=== PATIENT | female | born 1975 | race Caucasian/White ===

== ENCOUNTER 2019-10-28 12:45 | Inpatient (IN) | payer SELFPAY ==
[~2019-10-28] VITALS: Ht 175.3 cm; Wt 57.2 kg
[2019-10-28] MEDS ORDERED: SODIUM CHLORIDE 0.9% 1000ML BAG (SEPSIS BOLUS) IV ONE (13:30)
[2019-10-28 14:28] LABS: CLARITY URINE TURBID (CLEAR); COLOR URINE DK YELLOW (YELLOW); KETONES URINE 1+ (NEGATIVE); LEUKOCYTE ESTERASE URINE 2+ (NEGATIVE); NITRITE URINE NEGATIVE (NEGATIVE); OCCULT BLOOD URINE 1+ (NEGATIVE); PH URINE 6.5 (4.5-8.0); PROTEIN URINE 3+ (NEGATIVE); SPECIFIC GRAVITY URINE 1.022 (1.005-1.030)
[2019-10-28 15:17] LABS: *AMPHETAMINES SCREEN URINE NEGATIVE (NEGATIVE); *BARBITURATES SCREEN URINE NEGATIVE (NEGATIVE); *BENZODIAZEPINES SCREEN URINE NEGATIVE (NEGATIVE)
[2019-10-28 15:18] LABS: *COCAINE SCREEN URINE NEGATIVE (NEGATIVE); METHADONE URINE SCREEN NEGATIVE (NEGATIVE); OPIATES URINE SCREEN NEGATIVE (NEGATIVE); PHENCYCLIDINE URINE SCREEN NEGATIVE (NEGATIVE)
[2019-10-28 15:19] LABS: CANNABINOID URINE SCREEN NEGATIVE (NEGATIVE)
[2019-10-28 15:23] LABS: HEMATOCRIT. 32.5 % (36.0-48.0); HEMOGLOBIN. 10.5 g/dL (12.0-16.0); MEAN CORPUSCULAR HEMOGLOBIN 25.1 pg (28.0-32.0); MEAN CORPUSCULAR VOLUME 77.4 fL (81.0-99.0); MEAN PLATELET VOLUME 8.8 fl (7.4-10.4); PLATELET 252 x1000/uL (130-400); RED CELL DISTRIBUTION WIDTH 16.7 % (11.6-14.6)
[2019-10-28 15:26] LABS: CHLORIDE 108 mEq/L (98-107)
[2019-10-28 15:39] LABS: B-HCG QUANTITATIVE < 1 mIU/mL (<3)
[2019-10-28 16:09] LABS: ATYPICAL LYMPHOCYTES 1
[2019-10-28 16:10] LABS: PLATELET ESTIMATE NORMAL
[2019-10-28] MEDS ORDERED: ACETAMINOPHEN 325MG TABLET PO ONE (16:15)
[2019-10-28] MEDS ORDERED: ZOLPIDEM TARTRATE 5MG TABLET PO PRN (16:45)
[2019-10-28] MEDS ORDERED: IPRATROPIUM/ALBUTEROL 0.5-3(2.5)MG/3ML NEB NEB PRN (16:45)
[2019-10-28] MEDS ORDERED: GUAIFENESIN 200MG/10ML SUGAR FREE UDC PO PRN (16:45)
[2019-10-28] MEDS ORDERED: LEVOFLOXACIN 500MG PREMIX 100 ML IV SCH ×2 (16:45→17:45)
[2019-10-28] MEDS ORDERED: ONDANSETRON HCL 4MG/2ML INJ IV PRN (16:45)
[2019-10-28] MEDS ORDERED: NITROGLYCERIN 0.4MG TABLET SL SL PRN (16:45)
[2019-10-28] MEDS ORDERED: DOCUSATE SODIUM 100MG CAPSULE PO PRN (16:45)
[2019-10-28] MEDS ORDERED: CLONIDINE 0.1MG TABLET PO PRN (16:45)
[2019-10-28] MEDS ORDERED: MAGNESIUM/ALUMINUM HYDROXIDE/SIMETHICONE 30ML UDC PO PRN (16:45)
[2019-10-28] MEDS ORDERED: POTASSIUM CHLORIDE 20MEQ TABLET SR PO SCH (18:00)
[2019-10-28] MEDS: SODIUM CHLORIDE 0.9% 1,000 ML IV SCH (18:17)
[2019-10-28] MEDS: KETOROLAC 15MG/ML VIAL IV PRN (18:18)
[2019-10-28 18:39] VITALS: BP 131/62
[2019-10-28 18:40] VITALS: BP 131/62
[2019-10-28 18:43] LABS: ETHANOL BLOOD < 10 mg/dL
[2019-10-28] MEDS ORDERED: DEXTROSE 50% WATER 50ML SYRINGE IV PRN (18:45)
[2019-10-28 18:47] LABS: LDL CHOLESTEROL 90 mg/dL (5-100)
[2019-10-28 18:48] LABS: HDL CHOLESTEROL 73 mg/dL (40-59)
[2019-10-28 18:50] LABS: TOTAL IRON BINDING CAPACITY 368 ug/dL (250-450)
[2019-10-28] MEDS ORDERED: METF-415 MT (19:10)
[2019-10-28 19:13] LABS: FOLIC ACID (FOLATE) SERUM >20 ng/mL ng/mL (>5.38)
[2019-10-28 19:24] LABS: VITAMIN B12 SERUM 1043 pg/mL (211-911)
[2019-10-28 20:00] VITALS: BP 122/61
[2019-10-28] MEDS ORDERED: MAGNESIUM 1 G PREMIX 100 ML IV SCH (20:00)
[2019-10-28] MEDS: BLOOD SUGAR DIAGNOSTIC STRIP TEST SCH (21:00)
[2019-10-28] MEDS: LEVOFLOXACIN 500MG PREMIX 100 ML IV SCH (21:30)
[2019-10-28] MEDS: ENOXAPARIN 40MG/0.4ML SYR SUBCUT SCH (21:31)
[2019-10-28] MEDS: FAMOTIDINE 20MG TABLET PO SCH (21:31)
[2019-10-28] MEDS: INSULIN LISPRO 100 UNITS/ML SUBCUT SCH (22:11)
[2019-10-29] VITALS: BP 126/65
[2019-10-29 00:04] LABS: CREATINE KINASE 45 IU/L (26-192)
[2019-10-29 00:05] LABS: CREATINE KINASE MB FRACTION < 1.0 ng/mL (0.5-3.6)
[2019-10-29 04:00] VITALS: BP 115/59
[2019-10-29] MEDS: SODIUM CHLORIDE 0.9% 1,000 ML IV SCH ×2 (04:00→18:36)
[2019-10-29] MEDS: KETOROLAC 15MG/ML VIAL IV PRN ×3 (04:38→18:51)
[2019-10-29] MEDS: BLOOD SUGAR DIAGNOSTIC STRIP TEST SCH ×4 (05:39→21:38)
[2019-10-29 06:27] LABS: CREATINE KINASE 41 IU/L (26-192)
[2019-10-29 06:28] LABS: CREATINE KINASE MB FRACTION < 1.0 ng/mL (0.5-3.6)
[2019-10-29 08:00] VITALS: BP 110/61
[2019-10-29] MEDS: INSULIN LISPRO 100 UNITS/ML SUBCUT SCH ×4 (08:10→21:00)
[2019-10-29] MEDS ORDERED: CEFTRIAXONE 1 G PREMIX 50 ML IV SCH (09:00)
[2019-10-29] MEDS: FAMOTIDINE 20MG TABLET PO SCH ×2 (09:22→21:18)
[2019-10-29 12:00] VITALS: BP 122/70
[2019-10-29 16:00] VITALS: BP 126/74
[2019-10-29] MEDS: ACETAMINOPHEN 325MG TABLET PO PRN ×2 (17:31→22:26)
[2019-10-29] MEDS: CEFTRIAXONE 1 G PREMIX 50 ML IV SCH ×2 (21:16)
[2019-10-29] MEDS: ENOXAPARIN 40MG/0.4ML SYR SUBCUT SCH (21:18)
[2019-10-29] MEDS: LEVOFLOXACIN 500MG PREMIX 100 ML IV SCH (22:26)
[2019-10-30 00:07] VITALS: BP 126/57
[2019-10-30 04:00] VITALS: BP 132/65
[2019-10-30] MEDS: BLOOD SUGAR DIAGNOSTIC STRIP TEST SCH ×4 (07:40→20:23)
[2019-10-30 07:59] LABS: BASOPHILS % 0.3 % (0.0-2.0); EOSINOPHILS % 0.6 % (0.0-5.0); HEMATOCRIT. 30.2 % (36.0-48.0); HEMOGLOBIN. 9.7 g/dL (12.0-16.0); LYMPHOCYTES % 8.1 % (20.0-50.0); MEAN CORPUSCULAR HEMOGLOBIN 24.6 pg (28.0-32.0); MEAN PLATELET VOLUME 9.2 fl (7.4-10.4); MONOCYTES % 7.8 % (2.0-8.0); NEUTROPHILS % 83.2 % (40.0-76.0); PLATELET 275 x1000/uL (130-400); RED BLOOD CELL COUNT 3.93 mill/uL (4.2-5.4); RED CELL DISTRIBUTION WIDTH 16.6 % (11.6-14.6)
[2019-10-30 08:00] VITALS: BP 136/79
[2019-10-30] MEDS: INSULIN LISPRO 100 UNITS/ML SUBCUT SCH ×4 (08:10→20:22)
[2019-10-30 08:31] LABS: CHLORIDE 111 mEq/L (98-107)
[2019-10-30 08:39] LABS: PHOSPHORUS 2.6 mg/dL (2.5-4.9)
[2019-10-30] MEDS: FAMOTIDINE 20MG TABLET PO SCH ×2 (09:04→20:21)
[2019-10-30] MEDS: ACETAMINOPHEN 325MG TABLET PO PRN ×2 (10:29→17:11)
[2019-10-30] MEDS ORDERED: POTASSIUM CHLORIDE 20MEQ TABLET SR PO SCH (11:15)
[2019-10-30 12:00] VITALS: BP 128/79
[2019-10-30] MEDS: SODIUM CHLORIDE 0.9% 1,000 ML IV SCH ×3 (12:33→20:21)
[2019-10-30] MEDS: METRONIDAZOLE 500 MG PREMIX 100 ML IV SCH ×2 (15:16→22:32)
[2019-10-30 16:00] VITALS: BP 120/67
[2019-10-30] MEDS: CEFTRIAXONE 1 G PREMIX 50 ML IV SCH (19:55)
[2019-10-30] MEDS: ENOXAPARIN 40MG/0.4ML SYR SUBCUT SCH (20:21)
[2019-10-30] MEDS: KETOROLAC 15MG/ML VIAL IV PRN (20:31)
[2019-10-30] MEDS: LEVOFLOXACIN 500MG PREMIX 100 ML IV SCH (20:31)
[2019-10-31] VITALS: BP 127/69
[2019-10-31 04:37] VITALS: BP 139/78
[2019-10-31] MEDS: METRONIDAZOLE 500 MG PREMIX 100 ML IV SCH (05:48)
[2019-10-31] MEDS: ACETAMINOPHEN 325MG TABLET PO PRN (05:49)
[2019-10-31] MEDS: SODIUM CHLORIDE 0.9% 1,000 ML IV SCH (06:32)
[2019-10-31] MEDS: BLOOD SUGAR DIAGNOSTIC STRIP TEST SCH (07:40)
[2019-10-31] MEDS: INSULIN LISPRO 100 UNITS/ML SUBCUT SCH (07:50)
[2019-10-31 08:00] VITALS: BP 135/85
[2019-10-31] MEDS: KETOROLAC 15MG/ML VIAL IV PRN (08:24)
[2019-10-31 10:52] VITALS: BP 135/85
== END 2019-10-31 12:05 | disposition home or self-care (01) | DRG 463 ==
LOC: ER 12:45 → 7WST 16:12 → EDBEDREQ 16:17 → EDBEDREQTM 16:17 → ENRESERV 17:05
PROVIDERS: ADMIT Internal Medicine; ATTEND Internal Medicine
DX: N30.90 Cystitis, unspecified without hematuria (principal); I95.9 Hypotension, unspecified; E44.0 Moderate protein-calorie malnutrition; E83.42 Hypomagnesemia; D64.9 Anemia, unspecified; N83.202 Unspecified ovarian cyst, left side; E87.6 Hypokalemia; F41.9 Anxiety disorder, unspecified; E66.9 Obesity, unspecified; K21.9 Gastro-esophageal reflux disease without esophagitis; Z87.440 Personal history of urinary (tract) infections; Z82.49 Family history of ischemic heart disease and other diseases of the circulatory system; Z82.3 Family history of stroke; Z83.3 Family history of diabetes mellitus; Z97.5 Presence of (intrauterine) contraceptive device; Z68.1 Body mass index [BMI] 19.9 or less, adult
CPT/HCPCS: 36415; 71045; 74176; 76856; 80053; 80061; 80305; 80320; 81003; 82550; 82553; 82607; 82746; 82962; 83036; 83540; 83550; 83605; 83735; 83880; 84100; 84484; 84702; 85025; 87493; 93005; 93970; 99285; J0696; J1650; J1815; J1885; J1956; J3475; J3490; J7030; G0480